=== PATIENT | female | born 1990 ===

== ENCOUNTER 2017-01-19 10:23 | Emergency (ER) | payer OTHER ==
[2017-01-19 11:01] VITALS: BMI 27.5
--- NOTE | 2017-01-19 12:41 | RAD ---
PROCEDURE: Right ankle radiographs Right foot radiographs HISTORY: twisting injury COMPARISON: None available. FINDINGS: BONES: Acute displaced fractures of the distal fibula and tibia. JOINTS: No dislocation. SOFT TISSUES: Soft tissue swelling. No evidence of radiopaque foreign body. OTHER FINDINGS: None. IMPRESSION: Marked soft tissue swelling. Acute displaced distal fibula and tibial fractures.
--- NOTE | 2017-01-19 13:13 | C.PDOC ---
History Of Present Illness 26 y/o female presents to ED s/p fall down several steps yesterday, injuring her right ankle. Patient states she cannot bear weight. Patient notes her friend gave her Percocet last night which gave her generalized itchiness. Presents today because she was still unable to walk on the ankle. Denies any other injuries, weakness, numbness, or other physical complaints. Time Seen by Provider: 01/19/17 11:23 Chief Complaint (Nursing): Lower Extremity Problem/Injury History Per: Patient History/Exam Limitations: no limitations Onset/Duration Of Symptoms: Days Current Symptoms Are (Timing): Still Present Recent travel outside of the [place]: No Past Medical History Reviewed: Historical Data, Nursing Documentation, Vital Signs Vital Signs: Last Vital Signs Temp 97.9 F 01/19/17 15:03 Pulse 75 01/19/17 19:15 Resp 18 01/19/17 19:15 BP 120/72 01/19/17 19:15 Pulse Ox 98 01/19/17 19:15 - Medical History PMH: No Chronic Diseases Family History: States: Unknown Family Hx - Social History Hx Alcohol Use: Yes Hx Substance Use: No Review Of Systems Except As Marked, All Systems Reviewed And Found Negative. Constitutional: Negative for: Fever, Chills Gastrointestinal: Negative for: Nausea, Vomiting Musculoskeletal: Positive for: Other (right ankle pain) Skin: Negative for: Rash Neurological: Negative for: Weakness, Numbness Physical Exam - Physical Exam Appears: Non-toxic, No Acute Distress Skin: Normal Color, Warm, Dry Head: Atraumatic, Normacephalic Extremity: Tenderness (medial and lateral right ankle), Capillary Refill (< 2 sec. ), Swelling (right foot, moderate), Other (no foot tenderness, no instability, no knee tenderness or swelling) Pulses: Left Dorsalis Pedis: Normal, Right Dorsalis Pedis: Normal Neurological/Psych: Oriented x3, Normal Motor, Normal Sensation ED Course And Treatment O2 Sat by Pulse Oximetry: 100 (RA) Pulse Ox Interpretation: Normal - Other Rad Right Foot X-Ray X-Ray: Read By Radiologist Interpretation: IMPRESSION: Marked soft tissue swelling. Acute displaced distal fibula and tibial fractures. Right Ankle X-Ray X-Ray: Read By Radiologist Interpretation: IMPRESSION: Marked soft tissue swelling. Acute displaced distal fibula and tibial fractures. - CT Scan/US CT Lower Extremity R Other Rad Studies (CT/US): Radiology Report Reviewed CT/US Interpretation: IMPRESSION: Comminuted fracture of the ankle mortise involving the posterior and anterior aspects of the tibial plafond, as well as fracture of the distal fibula. Progress Note: Pain medication given. X-rays ordered and reviewed. Discussed with dr Granados who saw the pt in the ed and requested a CT prior to dospo. Post CT he requested pt f/u in clinic Medical Decision Making Medical Decision Making: Testing results discussed Reinforced lower leg splint applied by tech crutch walking taught Pt advised to contact her PCP for orth referral Disposition Counseled Patient/Family Regarding: Need For Followup - Disposition Referrals: Claudio Ferguson MD [Staff Provider] - Disposition: HOME/ ROUTINE Disposition Time: 19:00 Condition: GOOD Additional Instructions: Follow up per DR Ferguson Prescriptions: Acetaminophen/Hydrocodone Bi [Vicodin 300 mg-5 mg] 1 tab PO Q4H PRN #15 tab PRN Reason: .severe pain Naproxen [Naprosyn] 1 tab PO BID PRN #25 tab PRN Reason: Pain Instructions: Ankle Fracture (ED), Crutch Instructions (ED), Splint Care (ED) Forms: Work Excuse - Clinical Impression Clinical Impression: Ankle fracture - Scribe Statement The provider has reviewed the documentation as recorded by the Scribmarquita Gomez All medical record entries made by the Guanakoibmarquita were at my direction and personally dictated by me. I have reviewed the chart and agree that the record accurately reflects my personal performance of the history, physical exam, medical decision making, and the department course for this patient. I have also personally directed, reviewed, and agree with the discharge instructions and disposition.
[2017-01-19 15:04] VITALS: TEMP 97.9
[2017-01-19] MEDS ORDERED: Morphine 4 MG/ML VIAL ONE (15:11)
[2017-01-19] MEDS ORDERED: Naproxen 550 mg Tab PO STA (18:24)
--- NOTE | 2017-01-19 18:26 | CT ---
PROCEDURE: HISTORY: Fx ankle COMPARISON: TECHNIQUE: FINDINGS: There is an oblique fracture distal fibula as well as a fracture of the posterior malleolus, a fracture of the anterior tibial plafond is present as well. Nondisplaced. Extensive circumferential soft tissue swelling is present. The subtalar joint is intact. IMPRESSION: Comminuted fracture of the ankle mortise involving the posterior and anterior aspects of the tibial plafond, as well as fracture of the distal fibula.
[2017-01-19] MEDS ORDERED: Naproxen 550 mg Tab PO ONE (18:27)
[2017-01-19 18:32] VITALS: RESP 18
[2017-01-19 19:16] VITALS: BP 120/72; PULSE 75
[2017-01-22 17:19] VITALS: O2SAT 100
== END 2017-01-19 19:45 | disposition home or self-care (01) ==
LOC: C.ER 10:23
DX: S82.831A Other fracture of upper and lower end of right fibula, initial encounter for closed fracture (principal); W10.9XXA Fall (on) (from) unspecified stairs and steps, initial encounter
CPT/HCPCS: 29515; 73610; 73630; 73700; 96372; 99285; J1885; J2270